=== PATIENT | female | born 1995 | race Caucasian/White ===

== ENCOUNTER 2018-08-25 06:16 | Inpatient (IN) | payer OTHER, BC ==
[2018-08-25] MEDS ORDERED: LR 1,000 ML IV PRN (07:22)
[2018-08-25] MEDS ORDERED: OXYTOCIN/RINGERS LACTATE 1,000 ML IV PRN (07:22)
[2018-08-25] MEDS ORDERED: EPSOM SALT 454 GM TP PRN (07:22)
[2018-08-25] MEDS ORDERED: OLIVE OIL 118 ML BTL MISC PRN (07:22)
[2018-08-25] MEDS ORDERED: LIDOCAINE 1% 300 MG/30 ML SDV SC PRN (07:22)
[2018-08-25] MEDS ORDERED: IBUPROFEN 600 MG TAB PO PRN (07:22)
[2018-08-25] MEDS ORDERED: MISOPROSTOL 200 MCG TAB PR PRN (07:22)
[2018-08-25] MEDS ORDERED: OXYTOCIN/LR *LOW DOSE PROTOCOL IV SCH ×2 (08:00)
[2018-08-25] MEDS ORDERED: LR 500 ML IV PRN (08:05)
[2018-08-25] MEDS ORDERED: TERBUTALINE SULFATE 1 MG/ML VIAL ONE (08:18)
[2018-08-25] MEDS ORDERED: LIDOCAINE 1% 300 MG/30 ML SDV ONE (08:18)
[2018-08-25] MEDS ORDERED: AMMONIA AROMATIC 1 EACH AMP IH ONE (08:18)
[2018-08-25] MEDS ORDERED: OLIVE OIL 118 ML BTL MISC ONE (08:18)
[2018-08-25] MEDS ORDERED: MISOPROSTOL 200 MCG TAB ONE (08:19)
[2018-08-25 08:52] LABS: PLATELET COUNT 230 10^3/uL (150-400)
--- NOTE | 2018-08-25 10:53 | PDGENHP ---
History and Physical - Chief Complaint IOL, Post-dates 41w0d - History of Present Illness 23 yo G1 today at 41w0d by EUN of 08/18/18 (dated by 11wk US, LMP suggested ) - who presents this AM for IOL for post-dates. Was seen here on L&D last night for SCE and found to be 1cm, had pringle bulb placed by Dr. Palmer and went home. Reports had some mild cramps overnight, but was able to get some sleep. overall uncomplicated - had abnormal Glucola of 135 and declined 3hr GTT. Anemic at 28 wks and started on iron supps. GBS NEGATIVE. labs: O pos Antibody neg RPR NR Rubella IMM Hep B neg HIV neg Declined aneuploidy and carrier VZV IMM UAUCx neg Pap WNL no transition zone rpt 3 yrs GCC neg Glucola 135 HH 28wks 12.0/34.9 GBS NEGATIVE History Information - Allergies/Home Medication List Allergies/Adverse Reactions: No Known Allergies Allergy (Unverified 08/19/18 13:10) Home Medications: Iron 18 mg PO DAILY 08/25/18 [Last Taken 08/23/18] Dha 1 tab PO DAILY 08/25/18 [Last Taken 08/24/18] I have personally reviewed and updated: family history, medical history, social history, surgical history Past Medical History: Anemia (current, anterpartum) - Surgical History Reports: no pertinent surgical hx - Family History Positive for: non-pertinent - Social History Smoking Status: Never smoked Review of Systems Review of Systems: ROS: 10pt was reviewed & negative except for what was stated in HPI & below Physical Exam Physical Exam: Appears comfortable, pleasant, NAD Belly soft, gravid, longitudinal lie. SCE: Pringle bulb in the vagina on my first exam. /-2, AROM performed with copious clear fluid. Vertex. [place]: Regular q 4 mins Lab Data & Imaging Review 08/25/18 08:35 WBC 13.81 10^3/uL (3.80-9.50) H 08/25/18 08:35 RBC 3.88 10^6/uL (4.18-5.33) L 08/25/18 08:35 Hgb 13.0 g/dL (12.6-16.3) 08/25/18 08:35 Hct 37.0 % (38.0-47.0) L 08/25/18 08:35 MCV 95.4 fL (81.5-99.8) 08/25/18 08:35 MCH 33.5 pg (27.9-34.1) 08/25/18 08:35 MCHC 35.1 g/dL (32.4-36.7) 08/25/18 08:35 RDW 12.3 % (11.5-15.2) 08/25/18 08:35 Plt Count 230 10^3/uL (150-400) 08/25/18 08:35 MPV 9.3 fL (8.7-11.7) 08/25/18 08:35 Neut % (Auto) 72.0 % (39.3-74.2) 08/25/18 08:35 Lymph % (Auto) 17.4 % (15.0-45.0) 08/25/18 08:35 [place] % (Auto) 8.1 % (4.5-13.0) 08/25/18 08:35 Eos % (Auto) 1.5 % (0.6-7.6) 08/25/18 08:35 Baso % (Auto) 0.4 % (0.3-1.7) 08/25/18 08:35 Nucleat RBC Rel Count 0.0 % (0.0-0.2) 08/25/18 08:35 Absolute Neuts (auto) 9.95 10^3/uL (1.70-6.50) H 08/25/18 08:35 Absolute Lymphs (auto) 2.40 10^3/uL (1.00-3.00) 08/25/18 08:35 Absolute Monos (auto) 1.12 10^3/uL (0.30-0.80) H 08/25/18 08:35 Absolute Eos (auto) 0.21 10^3/uL (0.03-0.40) 08/25/18 08:35 Absolute Basos (auto) 0.05 10^3/uL (0.02-0.10) 08/25/18 08:35 Absolute Nucleated RBC 0.00 10^3/uL (0-0.01) 08/25/18 08:35 Immature Gran % 0.6 % (0.0-1.1) 08/25/18 08:35 Immature Gran # 0.08 10^3/uL (0.00-0.10) 08/25/18 08:35 Patient ABO/Rh O POSITIVE 08/25/18 07:30 Antibody Screen NEGATIVE 08/25/18 07:30 Assessment & Plan Assessment: 23 yo G1 at 41w0d - postdates IOL. Pit started on arrival this AM. SCE after she was in regular pattern with AROM w/ clear fluid. Currently /-2, may want epidural. GBS negative. Rh pos, Rubella and VZV immune. Anemia - check PP Hct. IFEANYI
[2018-08-25] MEDS ORDERED: PHENYLEPHRINE HCL 100 MCG/ML SYR ONE (14:20)
[2018-08-25] MEDS ORDERED: fentaNYL 2MCG/ML/BUP 0.1% RTU 100 ML BAG EP ONE (14:20)
[2018-08-25] MEDS ORDERED: NALOXONE HCL 0.4 MG/ML INJ IVP PRN (15:08)
[2018-08-25] MEDS ORDERED: METOCLOPRAMIDE 10 MG/2 ML VIAL IVP PRN (15:08)
[2018-08-25] MEDS ORDERED: PHENYLEPHRINE HCL 100 MCG/ML SYR IVP PRN (15:08)
[2018-08-25] MEDS ORDERED: ONDANSETRON 4 MG/2 ML VIAL IVP PRN (15:08)
--- NOTE | 2018-08-25 15:10 | PREANESOB ---
Obstetric Pre-Anesthesia Info - General Info Proposed Procedure: labor epidural : 1 Para: 0 EUN: 08/18/18 Gestational Age: 41 week(s) and 0 day(s) - Info Status: Full Term FHR Pattern: Reassuring - Labor Status Cervical Dilation per last OB SVE: 4 Indications for Labor Analgesia: Pain Control Labor Epidural: Yes Anesthesia Allergies/Adverse Reactions: Allergy/AdvReac Type Severity Reaction Status Date / Time No Known Allergies Allergy Unverified 08/19/18 13:10 Home Medications: Medication Instructions Recorded Iron 18 mg PO DAILY 08/25/18 Dha 1 tab PO DAILY 08/25/18 Visit Medications: Generic Name Dose Route Start Last Admin Trade Name Freq PRN Reason Stop Dose Admin Lactated Ringer's 1,000 mls @ 0 mls/hr 08/25/18 07:22 08/25/18 08:26 Lr IV 08/26/18 07:21 1,000 mls PRN PRN Administration SEE PROTOCOL CONDITIONS Protocol Per Protocol Oxytocin/Lactated Ringer's 1,000 mls @ 125 mls/hr 08/25/18 07:22 Pitocin 20 Units/Lr (Premix) IV PRN PRN Post bleeding Oxytocin/Lactated Ringer's 500 mls @ 0 mls/hr 08/25/18 08:00 08/25/18 08:26 Pitocin 30 Units/Lr (Premix) IV 02/21/19 07:59 500 mls CONT KALYN Administration Protocol Per Protocol Lactated Ringer's 500 mls @ 500 mls/hr 08/25/18 08:05 Lr IV 08/26/18 08:05 PRN PRN Maternal Hypotension Lactated Ringer's 500 mls @ 0 mls/hr 08/25/18 15:30 Lr IV 02/21/19 15:29 CONT KALYN As Directed Ibuprofen 600 mg 08/25/18 07:22 Motrin PO ONCE PRN post , pain Lidocaine HCl 300 mg 08/25/18 07:22 Lidocaine Hcl 1% SC 02/21/19 07:21 ONCE PRN episiotomy Magnesium Sulfate 454 gm 08/25/18 07:22 Epsom Salt TP 02/21/19 07:21 Q1H PRN perineal discomfort Misoprostol 800 - 1,000 mcg 08/25/18 07:22 Cytotec [place] ONCE PRN Vaginal Atony/Bleeding [place] Oil 118 ml 08/25/18 07:22 Sweet Oil MISC 02/21/19 07:21 ONCE PRN perineal massage Discontinued Medications Generic Name Dose Route Start Last Admin Trade Name Bonny PRN Reason Stop Dose Admin Ammonia (Aromatic Spirit) Confirm 08/25/18 08:18 Ammonia Aromatic Administered 08/25/18 08:19 Dose 1 each IH .STK-MED ONE Fentanyl/Bupivacaine HCl Confirm 08/25/18 14:20 Fentanyl/Bupivacaine/Ns 2 Mcg/Ml 0.1% (Premix Administered 08/25/18 14:21 Dose 100 ml EP .STK-MED ONE Lidocaine HCl Confirm 08/25/18 08:18 Lidocaine Hcl 1% Administered 08/25/18 08:19 Dose 300 mg .ROUTE .STK-MED ONE Misoprostol Confirm 08/25/18 08:19 Cytotec Administered 08/25/18 08:20 Dose 1,000 mcg .ROUTE .STK-MED ONE [place] Oil Confirm 08/25/18 08:18 Sweet Oil Administered 08/25/18 08:19 Dose 118 ml MISC .STK-MED ONE Phenylephrine HCl Confirm 08/25/18 14:20 Neosynephrine Administered 08/25/18 14:21 Dose 1,000 mcg .ROUTE .STK-MED ONE Terbutaline Sulfate Confirm 08/25/18 08:18 [place] Administered 08/25/18 08:19 Dose 1 mg .ROUTE .STK-MED ONE - Anesthesia History Response to Local Anesthetics: Not Applicable - Vital Signs Height/Weight (Nursing): Height 162.56 cm Weight 68.946 kg - Focused Exam Neck exam: FROM Mallampati Score: Class 2 Mouth exam: normal dental/mouth exam Pulmonary: no respiratory distress Cardiovascular: regular rate and rhythym Labs: 08/25/18 08:35 Patient ABO/Rh O POSITIVE 08/25/18 07:30 - Plan Consent Signed and on Chart: Yes Patient/Guardian Understands and Agrees to Plan: Yes
[2018-08-25] MEDS ORDERED: LR 500 ML IV SCH (15:30)
[2018-08-25] MEDS ORDERED: fentaNYL 2MCG/ML/BUP 0.1% RTU 100 ML EP SCH (15:30)
--- NOTE | 2018-08-25 19:16 | OBDEL ---
Info Type: Vaginal Presentation at Delivery: Vertex L&D Analgesia/Anesthesia Type: Epidural GBS+: No Intrapartum Medications: Generic Name Dose Route Start Last Admin Trade Name Freq PRN Reason Stop Dose Admin Lactated Ringer's 1,000 mls @ 0 mls/hr 08/25/18 07:22 08/25/18 08:26 Lr IV 08/26/18 07:21 1,000 mls PRN PRN Administration SEE PROTOCOL CONDITIONS Protocol Per Protocol Oxytocin/Lactated Ringer's 500 mls @ 0 mls/hr 08/25/18 08:00 08/25/18 08:26 Pitocin 30 Units/Lr (Premix) IV 02/21/19 07:59 500 mls CONT KALYN Administration Protocol Per Protocol Indications for Delivery: Postterm Unfavorable Cervix (Hough bulb, and Pit) Vaginal Delivery - Delivery Provider Delivery Physician/CNM: Brian Sarabia - Labor and Delivery Onset of Contractions Type: Augmented Rupture of Membranes Type: Artificial Amniotic Fluid Color: Clear Non-surgical Procedures: Amniotomy (Clear) Laceration: 2nd Degree, Other (Specify) (periurethral right, sub-clitoral) Repair: 3-0, 4-0 Vaginal Sponge Count Correct: Yes Vaginal Needle Count Correct: Yes Vaginal Sweep Performed: Yes EBL: 300 Delivery Events: Nuchal Cord (x1, loose and reduced) Delivery Comment: Hough bulb over her first night at home. Pitocin started on admission, followed by AROM with clear fluid at 4cm. Epidural soon after which needed to be replaced once to be effective. Ultimately went from 5cm to complete and +1. Pushed for approximately 10minutes with excellent progress. Delivered vigorous baby girl over a second degree laceration, direct OA position with loose nuchal cord x 1 that was reduced at the perineum. Hypercoiled cord. Baby up to mom's chest, 2 mins delayed cord clamping. Small sub clitoral lac repaired with single 4-0 vicryl figure of eight. Right periurethral repaired with running locked 4-0 vicryl. 2nd degree perineal lac repaired w 3-0 vicryl standard fashion. EBL 300. Mom and baby doing well in room. - Medications Labor Augmentation/Induction Methods Used: Pitocin, Hough Bulb Labor Augmentation/Induction Indication: Post Dates Data EUN: 08/18/18 Gestational Age: 41 week(s) and 0 day(s) [place] Delivery Date: 08/25/18 Delivery Time: 18:27 Sex of : Female Score (1 Min): 8 Score (5 Min): 9 Shoulder Dystocia Time Head Delivered: 18:27 Time Body Delivered: 18:27 Dystocia Comment: None ICD10 Worksheet Patient Problems: Problems Problem Status Onset Anemia affecting first Acute (spontaneous vaginal delivery) Acute - ICD10 Problem Qualifiers (1) (spontaneous vaginal delivery) (2) Anemia affecting first
[2018-08-25] MEDS ORDERED: HYDROCORTISONE 0.5% CREAM TP PRN (19:27)
[2018-08-25] MEDS ORDERED: SIMETHICONE 80 MG TAB CHEW PO PRN (19:27)
[2018-08-25] MEDS ORDERED: oxyCODONE IR 5 MG TAB PO PRN (19:27)
[2018-08-26] MEDS: ACETAMINOPHEN 325 MG TAB PO PRN ×3 (00:57→14:44)
[2018-08-26] MEDS: IBUPROFEN 600 MG TAB PO PRN ×4 (01:46→20:49)
[2018-08-26] MEDS: DOCUSATE SODIUM 100 MG CAP PO PRN ×2 (08:24→20:53)
--- NOTE | 2018-08-26 11:33 | OBPP ---
Progress Note Assessment/Plan: Assessment: ppd# 1 s/p breast feeding Rh +/ RI routine post care Plan: 08/26/18 11:30 Subjective/ Course: 08/26/18 11:31 patient is doing great. Pain is well controlled. normal lochia. denies headache and changes in vision. working on breast feeding. no concerns. Objective: 08/26/18 06:00 Patient ABO/Rh O POSITIVE 08/25/18 07:30 Temp Pulse Resp BP Pulse Ox 36.8 C 68 16 105/63 96 08/25/18 23:15 08/25/18 23:15 08/25/18 23:15 08/25/18 23:15 08/25/18 23:15 Physical Exam - Physical Exam Neck: non-tender, full range of motion, supple Respiratory: chest non-tender, lungs clear, normal breath sounds Cardiac/Chest: normal peripheral pulses, regular rate, rhythm Abdomen: normal bowel sounds, non-tender, other (fundus firm and non tender) Extremities: normal range of motion, non-tender, normal inspection, normal capillary refill Skin: normal color, warm/dry Neuro/Psych: no motor/sensory deficits, alert, normal mood/affect, oriented x 3
--- NOTE | 2018-08-26 14:09 | POSTANESTH ---
Post Anesthetic Evaluation Cardiovascular Status: Normal, Stable Respiratory Status: Normal, Stable Level of Consciousness/Mental Status: Can Participate in Eval Pain Control: Adequate, Prn Tx Ordered Nausea/Vomiting Control: Adequate, Prn Tx Ordered Complications Possibly Related to Anesthesia: None Noted (pt. reports excellent anagesia from SUSANNAH. At this point, she denies any headache,residual weakeness/ numbness. She is ambulating without difficulty, no problems with urination. She does have mild tenderness at SUSANNAH placement site, where there is pinpoint erythema.)
[2018-08-27] MEDS: IBUPROFEN 600 MG TAB PO PRN ×2 (05:46→11:58)
[2018-08-27] MEDS: DOCUSATE SODIUM 100 MG CAP PO PRN (08:16)
--- NOTE | 2018-08-27 09:04 | OBPP ---
Progress Note Assessment/Plan: Assessment: s/p PPD 2 mild anemia Plan: d/c home, iron daily 08/27/18 08:59 Subjective/ Course: 08/26/18 11:31 patient is doing great. Pain is well controlled. normal lochia. denies headache and changes in vision. working on breast feeding. no concerns. 08/27/18 09:02 Pt doing well - working on BF with . baby has been cluster feeding. bld is lessened. urinating fine. bottom sore but managing with ibu. Ready for d/c Objective: 08/26/18 06:00 Patient ABO/Rh O POSITIVE 08/25/18 07:30 Temp Pulse Resp BP Pulse Ox 36.0 C 74 16 113/77 97 08/26/18 20:45 08/26/18 20:45 08/26/18 20:45 08/26/18 20:45 08/26/18 20:45 Uterine Position/Fundal Height: Umbilicus -2 Uterine Tone: Firm Physical Exam - Physical Exam Abdomen: non-tender, soft, other (FF at umb -2) Extremities: non-tender, pedal edema (mild) Skin: normal color, warm/dry Neuro/Psych: alert, normal mood/affect
--- NOTE | 2018-08-27 09:06 | OBGCSDC ---
General Delivery Information - General Info : 1 Para: 1 Abortions: 0 Type: Vaginal L&D Analgesia/Anesthesia Type: Epidural Admission Date: 08/25/18 Labs: Patient ABO/Rh O POSITIVE 08/25/18 07:30 Hct 35.8 % (38.0-47.0) L 08/26/18 06:00 - Hospital Course : 08/26/18 11:31 patient is doing great. Pain is well controlled. normal lochia. denies headache and changes in vision. working on breast feeding. no concerns. 08/27/18 09:02 Pt doing well - working on BF with . baby has been cluster feeding. bld is lessened. urinating fine. bottom sore but managing with ibu. Ready for d/c Vaginal - Delivery Provider Delivery Physician/CNM: Brian Sarabia - Diagnosis Labor: Augmented Rupture of Membranes Type: Artificial Amniotic Fluid Color: Clear Laceration: 2nd Degree, Other (Specify) (periurethral right, sub-clitoral) Repair: 3-0, 4-0 Delivery Events: Nuchal Cord (x1, loose and reduced) - Procedures Non-surgical Procedures: Amniotomy (Clear) - Delivery Non-surgical Procedures: Amniotomy (Clear) EBL: 300 [place] Data EUN: 08/18/18 Gestational Age: 41 week(s) and 2 day(s) [place] Delivery Date: 08/25/18 Delivery Time: 18:27 Sex of : Female Score (1 Min): 8 Score (5 Min): 9 Discharge Information - Discharge Information Condition: Good Instruction/Follow Up: See Instruction Sheet, Two Weeks (2-3 wks with therapist) , Six Weeks (with JM)
[2018-08-27 09:21] VITALS: BP 127/83
== END 2018-08-27 12:45 | disposition home or self-care (01) | DRG 807 ==
LOC: FLD 06:16 → FOB 21:39
PROVIDERS: ADMIT Obstetrics & Gynecology; ATTEND Obstetrics & Gynecology
DX: O48.0 Post-term pregnancy (principal); O70.1 Second degree perineal laceration during delivery; O69.9XX0 Labor and delivery complicated by cord complication, unspecified, not applicable or unspecified; O99.02 Anemia complicating childbirth; O34.43 Maternal care for other abnormalities of cervix, third trimester; D64.9 Anemia, unspecified; Z3A.41 41 weeks gestation of pregnancy; Z37.0 Single live birth
CPT/HCPCS: J2370; J2590; J3105